=== PATIENT | male | born 1960 | race Caucasian/White ===

== ENCOUNTER → 2021-07-02 11:10 | Outpatient (CLI) | payer OTHER, SELFPAY ==
--- NOTE | ~2021-07-02 | XR_ITS ---
EXAMINATION: XR hip RT min 2V DATE: 07/02/2021 12:09 INDICATION: Right hip osteoarthritis and pain. TECHNIQUE: 2 views of right hip with weightbearing were obtained. COMPARISON: None. FINDINGS: Bone alignment is normal. No fracture. Right hip joint space is normal. IMPRESSION: 1. Normal right hip. Reviewed, dictated and finalized at location A. IMPRESSION: 1. Normal right hip.
== END ==
PROVIDERS: Visit Provider Chiropractor
DX: M16.11 Unilateral primary osteoarthritis, right hip (principal)
CPT/HCPCS: 73502

== ENCOUNTER 2022-07-05 11:04 | Outpatient (CLI) | payer BC, SELFPAY | END 2022-07-05 11:05 | disposition home or self-care (01) | LOC: ANHBWCAUD 11:05 | PROVIDERS: PCP Otolaryngology; Visit Provider Otolaryngology | DX: H90.3 Sensorineural hearing loss, bilateral (principal) | CPT/HCPCS: 92557; 92567 ==

== ENCOUNTER 2023-03-17 23:03 | Emergency (ER) | payer BC, SELFPAY ==
--- NOTE | ~2023-03-17 | XR_ITS ---
XR ankle RT min 3V DATE: 03/17/2023 23:25 INDICATION: Fall. Deformity. TECHNIQUE: Portable three-view examination COMPARISON: None FINDINGS: There is a posteriorly displaced linear oblique fracture through the distal fibular diameta physis and posterior dislocation of the tibiotalar joint. There are some calcifications of the distal Achilles tendon. Mild plantar calcaneal enthesopathy. IMPRESSION: Linear oblique posteriorly displaced distal fibular diametaphyseal fracture and posterior tibiotalar joint dislocation Reviewed, dictated and finalized at location A.
--- NOTE | ~2023-03-17 | XR_ITS ---
XR ankle RT min 3V DATE: 03/18/2023 01:12 INDICATION: Fracture dislocation TECHNIQUE: Portable 4 view examination COMPARISON: 03/17/2023 right ankle FINDINGS: There is reduction of the posterior dislocation but mild lateral subluxation at the tibiota lar joint. Linear oblique fracture of the distal fibular diametaphysis is again noted with diminished displaceme nt,, currently approximately 3.8 mm lateral to 6.5 mm posterior displacement. IMPRESSION: Mild lateral subluxation at the tibiotalar joint Mild posterolateral displacement at the linear oblique distal fibular diametaphyseal fracture Reviewed, dictated and finalized at location A. IMPRESSION: Mild lateral subluxation at the tibiotalar joint Mild posterolateral displacement at the linear oblique distal fibular diametaph yseal fracture
--- NOTE | ~2023-03-17 | XR_ITS ---
XR hand LT min 3V DATE: 03/17/2023 23:25 INDICATION: Fall. Left hand injury TECHNIQUE: 3 portable views COMPARISON: None FINDINGS: There is prominent soft tissue swelling of the hand, particularly along the dorsum of the h and. There is polyarticular osteoarthritis, involving the first carpometacarpal joint and some interphalan geal joints. No fracture, dislocation, periosteal reaction or bone destruction, erosive change or chondrocalcinosi s is noted. IMPRESSION: Soft tissue swelling Osteoarthritis Reviewed, dictated and finalized at location A.
[2023-03-17 23:04] VITALS: BP 150/77; PULSE 87; RESP 18; TEMP 35.7; O2SAT 99
[2023-03-17 23:27] VITALS: BP 142/84; O2SAT 98
[2023-03-17 23:31] VITALS: BP 149/89; O2SAT 97
[2023-03-17] MEDS: MORPHINE SULFATE (*CRX) 4 MG/ML INJ IV PUSH (23:49)
[2023-03-17] MEDS: ONDANSETRON INJ 4 MG/2 ML VIAL IV PUSH (23:49)
[2023-03-18] VITALS (19 sets, daily range): BP systolic 135–165; BP diastolic 80–98; PULSE 87–96; RESP 12–25; TEMP 36.8–37.1; O2SAT 93–100
[2023-03-18] MEDS: SODIUM CHLORIDE 0.9% IV 1,000 ML 150 ML IV CONT (00:42)
--- NOTE | 2023-03-18 01:44 | ED.LOWEXIN ---
HPI - Extremity Injury (Lower) General Chief Complaint: Extremity Injury, Lower Stated Complaint: fall, right ankle pain Time Seen by Provider: 03/17/23 23:18 Source: patient and family Mode of arrival: wheelchair Limitations: no limitations History of Present Illness HPI Narrative: 62-year-old here with plaints of fall. Patient states that he missed a step fell down 5 of 6 stairs at home. Complaining of right ankle pain and left hand swelling. He denies any head and neck injuries. reports that he fell earlier this morning at the pool. Denies any LOC ,he is not on any anticoagulant. MD complaint: ankle injury Injury: Right: ankle Type of Injury: unknown Place: home Severity: moderate Severity scale (1-10): 10 Relieving factors: nothing Exacerbating factors: weight bearing and movement Context: fall Associated symptoms: snap/pop sensation, swelling and unable to bear weight Other symptoms: none Related Data Allergies Allergy/AdvReac Type Severity Reaction Status Date / Time No Known Allergies Allergy Unknown Verified 03/17/23 23:22 Review of Systems Review of Systems: All systems reviewed & are unremarkable except as noted in HPI and below Constitutional: Constitutional: Reports no additional constitutional complaints Eyes: Eyes: Reports no additional eye complaints ENT: Reports system reviewed and no additional complaints, except as documented Cardiovascular: Cardiovascular: Reports no additional cardiovascular complaints Respiratory: Respiratory: Reports no additional respiratory complaints Gastrointestinal: Gastrointestinal: Reports no additional gastrointestinal complaints Musculoskeletal: Musculoskeletal: Reports as per HPI Neurologic: Reports system reviewed and no additional complaints, except as documented Psychiatric: Psychiatric: Reports no additional psychiatric complaints [facility] Social History Social History Smoking status: Never smoker Alcohol intake: current Exam Narrative: GENERAL: Well-appearing, well-nourished, and in no acute distress. HEAD: Normocephalic, atraumatic. Small bruise noted on the left bahai EYES: PERRLA and EOMI. ENT: Nares clear, no rhinorrhea or epistaxis. Mucous membranes moist. NECK: Supple. CHEST: Clear to auscultation. No respiratory distress. HEART: Regular rate and rhythm. No murmur heard. Normal peripheral pulses. ABDOMEN: Soft, nontender, nondistended, normal active bowel sounds. EXTREMITIES: Normal range of motion. Obvious deformity of the right ankle. Adequate distal pulses. Neurologically intact Soft tissue swelling noted on the left hand with no deformity SKIN: Warm, dry, no rash. NEURO: No focal deficits. Alert and oriented x3. PSYCH: Normal mood and affect. Course Course Emergency Course: Notified patient about his x-ray findings of his right ankle agreeable for moderate sedation and closed reduction of the right ankle. Notified Dr. Cruz, will follow up in the office Vital Signs Vital signs: Vital Signs Temperature 35.7 C L 03/17/23 23:04 Pulse Rate 87 03/17/23 23:04 Respiratory Rate 18 03/17/23 23:04 Blood Pressure 150/77 H 03/17/23 23:04 Pulse Oximetry 99 03/17/23 23:04 Oxygen Delivery Room Air 03/17/23 23:04 Temperature 37.0 C 03/18/23 01:22 Pulse Rate 89 03/18/23 01:22 Respiratory Rate 21 H 03/18/23 01:22 Blood Pressure 143/88 H 03/18/23 01:22 Pulse Oximetry 96 03/18/23 01:22 Oxygen Delivery Room Air 03/18/23 01:22 Oxygen Flow Rate 3 03/18/23 00:48 Procedures Orthopedic Fracture Reduction Fracture #1: Fracture Reduction date: 03/18/23 Fracture Reduction time: 00:50 Time Out Performed: Yes Side: right Fracture Reduction Location: other (Right ankle) Analgesia: procedural sedation Pre-Procedure Neuro Vascular Exam: normal Technique: direct manipulation Post Red
== END 2023-03-18 03:02 | disposition home or self-care (01) ==
PROVIDERS: Emergency Provider Family Medicine; PCP Family Medicine
DX: S82.891A Other fracture of right lower leg, initial encounter for closed fracture (principal); S93.04XA Dislocation of right ankle joint, initial encounter; W10.9XXA Fall (on) (from) unspecified stairs and steps, initial encounter; Y92.009 Unspecified place in unspecified non-institutional (private) residence as the place of occurrence of the external cause
CPT/HCPCS: 27840; 73130; 73610; 96374; 96375; 99285; J2270; J2405; J2704; J7030

== ENCOUNTER 2023-03-23 03:08 | Day surgery (SDC) | payer BC, SELFPAY ==
[2023-03-22 09:28] VITALS: BMI 36.2
--- NOTE | 2023-03-22 09:41 | PC.NURSE ---
Report to the Outpatient Waiting Room, entrance under the green pavilion located off [facility], at time __1000 on date ___03/23/23____. Planned Procedure Time: ___1200 . Time changes happen often and if your time is changed the preop area will call you the afternoon before. - You and your visitor will be asked to self-screen and do not enter if you have any COVID symptoms. - A mask is optional within the hospital at this time. Patients may have clear liquids (water, carbonated beverages, clear teas, apple juice) until 3 hours prior to surgery (0900 AM) with a maximum of 20 ounces. - No food from midnight until time of surgery - Infants may have breast milk until 4 hours before surgery, infant formula 6 hours prior to surgery. - Children will be allowed to drink immediately following surgery. If applicable, please bring a bottle or sippy cup to assist with drinking. Juice, water, soda, and popsicles are readily available. For infants on formula, please bring formula the day of surgery. Pacifiers are allowed. Take the following medications with a SIP of water the morning of surgery: PAIN PILL DO NOT STOP ANY OF YOUR OTHER PRESCRIPTION MEDICATIONS PRIOR TO SURGERY ?EXCEPT THE FOLLOWING Medications to discontinue per physician _IBUPROFEN PER DR. HUITRON'S INSTRUCTIONS, MULTIVITAMIN & SUPPLEMENTS OF TODAY 03/22/23___ Date to take last dose Please no make-up, nail irish, hairspray, perfume, deodorant, or body powder the day of surgery. No jewelry (including any body piercings) or valuables the day of surgery, leave them at home. Please take a shower or bath the night before, or the morning of, surgery with an antibacterial soap. Wear comfortable, loose fitting clothing. Children are encouraged to wear pajamas. - Jewelry must be removed prior to entering the operating room. Rings and piercings that are not removed may be cut off. - The hospital will not accept responsibility for valuables. - Please leave all valuables, including medications, at home the day of surgery. If you are going home after surgery, a licensed route driver must drive you home. - NO public transportation without another adult if you receive anesthesia. - We recommend that an adult stay with you for 24 hours following discharge. - We also recommend that you do not drive, make important decision, drink alcoholic beverages, or take any drugs that were not prescribed by your health care provider for at least 24 hours after your discharge time. For Pediatric surgeries, we recommend two adults accompany the child home. Follow any additional instructions given to you from your surgeon. If you or anyone in your household have experienced Covid symptoms in the past week, please notify your surgeon or the nurse liaison at the phone number below for possible testing. Telephone instructions given to ____PT and asked if any additional questions and then verbalized understanding. Patient advised to call surgeon office or pre surgery nurse liaison [phone] if any additional questions.
[2023-03-23] VITALS (12 sets, daily range): BP systolic 148–183; BP diastolic 86–98; PULSE 76–92; RESP 12–18; TEMP 36.7–37; O2SAT 93–98
--- NOTE | ~2023-03-23 | XR_ITS ---
EXAMINATION: XR surgery orthopedic DATE: 03/23/2023 12:30 CDT INDICATION: ORIF RIGHTT ANKLE . TECHNIQUE: 4 fluoroscopic images of the right ankle were obtained during ORIF right ankle performed b y the surgeon. I was not present in the operating room. Fluoroscopy exposure time was 64.6 seconds. A ir Kerma 3.69 mGy. DAP 0.63967 mGym2. COMPARISON: X-ray right ankle FINDINGS: Hardware fixation of the distal fibula and syndesmosis. The ankle joint is aligned. IMPRESSION: Fluoroscopic documentation of ORIF right ankle. Please refer to the operative note for complete proce dural details . Reviewed, dictated and finalized at location K. IMPRESSION: Fluoroscopic documentation of ORIF right ankle. Please refer to the operative n ote for complete procedural details .
--- NOTE | 2023-03-23 10:40 | WPDHPUPDATE1 ---
History and Physical Update Update Date/Time: 03/23/23 10:40 History and Physical has been reviewed, including an updated exam of the patient. There are NO changes in the patient's condition. Risks, benefits, and alternatives have been discussed and questions answered. Patient agrees to proceed with procedure.
[2023-03-23] MEDS: LACTATED RINGERS 1,000 ML 30 ML IV CONT ×2 (10:50→13:41)
[2023-03-23] MEDS: KETOROLAC 15 MG/ML VIAL (*BKC) IV PUSH (10:56)
[2023-03-23] MEDS: ACETAMINOPHEN 500 MG TABLET 1000 MG PO (10:56)
--- NOTE | 2023-03-23 11:51 | WPDANESEPPF ---
Anes - Initial Pre Proc Eval Procedure: Operation Date: 03/23/23 12:00 Proposed Procedures p Open Reduction Internal Fixation Right Ankle Fracture - Eduardo Cruz MD Date/Time: 03/23/23 11:51 Surgeon: Eduardo Cruz MD Pre Op Diagnosis: Right Ankle Fracture Patient Data Age: 62 Gender: M Height: 1.75 m Weight: 95.6 kg Last Vital Signs Temp 36.7 C 03/23/23 10:33 Pulse 76 03/23/23 10:33 Resp 18 03/23/23 10:33 BP 155/86 H 03/23/23 10:33 Pulse Ox 98 03/23/23 10:33 O2 Del Method Room Air 03/23/23 10:33 Allergies Allergy/AdvReac Type Severity Reaction Status Date / Time No Known Allergies Allergy Unknown Verified 03/23/23 10:31 Home Medications Medication Instructions Recorded Confirmed Type oxycodone-acetaminophen 5 mg-325 1 tablet PO Q6H PRN pain #20 tabs 03/18/23 03/23/23 Rx mg tablet (Percocet) acetaminophen 500 mg tablet 500 mg PO QID PRN Pain 03/22/23 03/23/23 History ibuprofen 200 mg tablet 200 mg PO Q6H PRN Pain 03/22/23 03/23/23 History multivitamin 1 tablet DAILY 03/22/23 03/23/23 History potassium 99 mg tablet 99 mg HS 03/22/23 03/23/23 History Patient hx anesthesia problems: none Family hx anesthesia problems: none Results Review: All pre-operative results and documents have been reviewed as part of the pre-operative evaluation. COUNTS INCLUDE 234 BEDS AT THE [facility] Surgical History Surgical History History of hernia surgery Family History Family History Unknown Heart disease Hypertension Depression Lung disease Social History Social History Smoking status: Never smoker Second hand tobacco smoke exposure: No Alcohol intake: current Drinks per week: 10 Substance use: never Substance use type: does not use Living arrangements: with family Spiritual care concerns: No Anes - Eval Final PreProcedure Day of Procedure 07/20/23 11:51 Patient weight: obese Heart: regular rate and rhythm Lungs: clear to auscultation Airway: Mallampati scale class II Neurological: alert and oriented Last oral intake: >/= 8 hours ASA classification: II Emergent: no Anesthetic plan: proceed Anesthesia type and monitoring: general LMA and standard monitoring Results Review: All pre-operative results and documents have been reviewed as part of the pre-operative evaluation. Informed Consent: The patient's anesthetic plan and its attendant risks and benefits were discussed with the patient/family/POA. Questions were solicited and answers provided to the satisfaction of the patient/family/POA.
[2023-03-23] MEDS: ceFAZolin 2 GM/D5W 50 ML 2 GM/50 ML BAG IVPB (12:07)
[2023-03-23] MEDS: BUPIVACAINE/EPINEPHRINE 0.25% 10 ML VIAL 30 ML INFILTRATE (12:32)
--- NOTE | 2023-03-23 13:47 | W.PM.PROC2 ---
Procedure Note - Detailed Date of Procedure 03/23/23 Pre-op Diagnosis Right Ankle Fracture Post-op Diagnosis Same ( right ankle fracture dislocation with involvement of the lateral and medial malleolus, right ankle syndesmosis disruption) Procedure Performed Open reduction internal fixation right ankle fracture distal fibula, And medial malleolus. open reduction internal fixation of right ankle Distal syndesmosis Surgeon Eduardo Cruz MD Associate Dean 1St assistant facility manager Anesthesia General Indications 62-year-old fell and sustained a right ankle fracture dislocation. Presents now for operative treatment. Findings Distal fibular fracture with displacement. The deltoid ligament rupture from the medial malleolus with avulsion fragment. Description of Procedure After informed consent, the operative extremity was marked in the preoperative holding area. Patient received intravenous antibiotics. Patient was then taken to the operating room and underwent general anesthesia by the anesthesia team. Positioned supine on the operating room table with a soft bump under the ipsilateral hip. A time-out was performed confirming the patient, site of the surgery, operative plan. Lower extremity then prepped and draped in the usual sterile surgical fashion using ChloraPrep skin solution. Foot and ankle exsanguinated and a thigh tourniquet inflated to 250 mmHg. Longitudinal incision made over the lateral ankle distal fibula with a 15 blade knife. Hemostasis controlled with electrocautery. Full-thickness soft tissue flaps developed and the fascia was incised in line with the skin incision. Fracture identified and cleared with a dental pick, irrigation and rongeur. Fracture reduced and held with bone-holding clamp. Image intensification confirmed reduction of the fracture and the ankle mortise. Fixation achieved with an intramedullary nail. Guide pin placed from distal to the fibula through the intramedullary canal across the fracture proximally and verified with image intensification. This was then reamed and the nail was inserted. Correct depth verified and distal locking performed with 2.7 mm screw x2. The proximal locking device was deployed.. Good alignment and stability of the fracture noted. Image intensification used to confirm reduction of the fracture and placement of the hardware. With stress on the ankle under fluoroscopy there was noted to be instability of the syndesmosis. Syndesmosis fixed with a Tight rope fixation system. control placed from lateral to medial under fluoroscopy guidance. The medial button was then passed and secured to the medial tibia lateral button placed and tension was applied to the syndesmosis with the ankle in neutral position. Image intensification confirmed placement at stability. Medial side then addressed. Longitudinal incision made with a 15 blade knife over the medial malleolus fracture. Hemostasis controlled with electrocautery. Fascia incised in line with skin incision. Periosteum cleared from the medial malleolus fracture. Medial side of the joint inspected and noted to have mild amount of trauma to the chondral surface. Thorough irrigation of the ankle joint and suctioned out. Fracture reduced and provisionally pinned. Fixation achieved with 2.0 mm fiber tack attached 2 FiberWire suture. Fiber or suture placed through the deltoid ligament distal to the avulsion and reduced into position.. Image intensification confirmed reduction of the fracture and placement of the hardware. Stress of the ankle performed with good stability of the ankle mortise in all directions. Wounds thoroughly irrigated with solution. Fascia repaired with 00 Vicryl interrupted suture. Subcutaneous tissue repaired with 000 Monocryl interrupted suture and Skin approximated with Dermabond. Sterile dressings applied followed by bulky dressing and splint. Patient awoken from anesthesia, extubated and taken to the recovery room in stable condi
[2023-03-23] MEDS: fentaNYL CITRATE INJ (*CRX) 100 MCG/2 ML VIAL 25 MCG IV PUSH ×8 (14:30→14:56)
[2023-03-23] MEDS: HYDROmorphone HCL INJ (*CRX) 1 MG/ML SYR IV PUSH (15:03)
[2023-03-23] MEDS: oxyCODONE HCL (*CRX) 5 MG TAB IR PO (15:44)
== END 2023-03-23 16:44 | disposition home or self-care (01) ==
PROVIDERS: PCP Family Medicine; Visit Provider Orthopaedic Surgery
PROC: (CPT 27814; principal; 2023-03-23 12:00)
DX: S82.841A Displaced bimalleolar fracture of right lower leg, initial encounter for closed fracture (principal); S93.431A Sprain of tibiofibular ligament of right ankle, initial encounter; W10.9XXA Fall (on) (from) unspecified stairs and steps, initial encounter; E66.9 Obesity, unspecified; Z68.31 Body mass index [BMI] 31.0-31.9, adult
CPT/HCPCS: 27814; 27829; 99199; A9270; C1713; J0690; J1100; J1170; J1885; J2250; J2405; J2704; J3010; J7120

== ENCOUNTER 2023-08-07 08:44 | Outpatient (CLI) | payer BC, SELFPAY ==
--- NOTE | 2023-08-08 12:45 | WPDHOMESLEEP ---
Sleep Study - Home Unattended Date of Study: 08/07/23 Ordering Provider: Pillo Mike MD Interpreting Provider: Sarah Mendiola DO Home Sleep Study Type: Watch PAT Height: 1.75 m Weight: 113.398 kg Body Mass Index: 36.9 Neck Circumference (inches): 17.5 [place]: 8 Reason for Sleep Study Snoring, unrefreshing sleep Sleep History The patient is a 63-year-old male with diverticulosis, tinnitus, right shoulder pain and obesity that had a sleep study ordered by his primary care physician for evaluation sleep. 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 The patient did not fill out the sleep intake forms so I am unable to comment on his sleep history. [facility] Past Medical History Medical History BMI 37.0-37.9, adult BMI 38.0-38.9,adult Diverticulosis Encounter for postoperative care H/O fracture of ankle H/O fracture of leg History of GI bleed Medication management Need for vaccination Right shoulder pain Snoring Surgical History Surgical History History of hernia surgery Family History Family History Father Hypertension Dementia Heart disease Mother Hypertension Hypoglycemia Depression Heart disease Fibromyalgia Sibling PTSD (post-traumatic stress disorder) Social History Social History Smoking status: Never smoker Second hand tobacco smoke exposure: Yes Alcohol intake: current Drinks per week: 10 Substance use: never Substance use type: does not use Lack of Transportation: No Lack of Food: Never True Current Housing: I Have Housing Concerned About Future Housing: No Difficulty Paying Gas/Electric Bills: No Difficulty Paying for Meds: No Currently Unemployed: No Education: Bachelor's Degree Living arrangements: with family Occupation/Education: occupation 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 Gender identity (if verbalized by the patient): Male Spiritual care concerns: No Medications Home Medications Medication Instructions Recorded Confirmed Type acetaminophen 500 mg tablet 500 mg PO QID PRN Pain 03/22/23 07/10/23 History ibuprofen 200 mg tablet 200 mg PO Q6H PRN Pain 03/22/23 07/10/23 History multivitamin 1 tablet DAILY 03/22/23 07/10/23 History potassium 99 mg tablet 99 mg HS 03/22/23 07/10/23 History pneumoc 20-darlene conj-dip cr(PF) 0.5 0.5 ml IM ONCE #0.5 mL 05/25/23 07/10/23 Rx mL IM syringe (Prevnar 20 (PF)) eszopiclone 3 mg tablet (Lunesta) 3 mg PO QHS #30 tabs 07/10/23 07/10/23 Rx Sleep Procedure The sleep study was completed using Image InsightT a technically adequate device with seven channels: peripheral arterial tone, actigraphy, body position, snore, respiratory movement, pulse oximetry, sleep staging, and heart rate. Prior to using the device, the patient received verbal and written instructions for its application and was provided with the help desk phone number for additional telephonic instruction with 24-hour availability of qualified personnel to answer questions. The study was scored using CMS guidelines. Sleep Architecture The patient had a total recording time of 7 hours 2 minutes and a total sleep time of 6 hours 26 minutes. The sleep efficiency was 91.37%. The sleep latency was 27 minutes and the REM latency was 90 minutes. The patient had 5 awakenings. The patient spent 70.23% of total sleep time in light sleep, 10.62% of total sleep time in deep sleep and 19.15% of total sleep time in REM sleep. The patient spent 3.8 minutes, 1% of total sleep time in the supine position. Respiratory Analysis The patient had an overall AHI of 30.5 and a central apnea index of 0.2. The REM AHI was 43.2. Sanjay Aguiar respirations were not seen. Oximetry Data The patient had an
[2023-08-08 12:53] VITALS: BMI 36.9
== END 2023-08-08 08:00 | disposition home or self-care (01) ==
LOC: ANHCSM 08:45
PROVIDERS: PCP Family Medicine; Visit Provider Family Medicine
DX: G47.19 Other hypersomnia (principal); G47.33 Obstructive sleep apnea (adult) (pediatric)
CPT/HCPCS: 95800

== ENCOUNTER 2024-08-06 09:22 | Outpatient (CLI) | payer BC, SELFPAY ==
--- NOTE | 2024-08-06 11:30 | NEURO_ITS ---
Impression: # Complains of numbness of hands. Non-diabetic. # Mild bilateral Carpal Tunnel Syndrome. # No ulnar neuropathy. # Normal Needle/EMG exam. Nerve Conduction Studies Anti Sensory Summary Table Stim Site NR Peak (ms) P-T Amp (?V) Site1 Site2 Delta-P (ms) Dist (cm) Dex (m/s) Left Median Anti Sensory (2-3nd Digit) Wrist 3.4 46.8 Wrist 2-3nd Digit 3.4 14.0 41 Wrist 4.1 16.9 Wrist 2-3nd Digit 3.4 14.0 41 Right Median Anti Sensory (2-3nd Digit) Wrist 4.2 36.4 Wrist 2-3nd Digit 4.2 14.0 33 Wrist 4.6 44.3 Wrist 2-3nd Digit 4.2 14.0 33 Left Radial Anti Sensory (Base 1st Digit) Wrist 2.3 22.4 Wrist Base 1st Digit 2.3 0.0 Right Radial Anti Sensory (Base 1st Digit) Wrist 2.0 25.4 Wrist Base 1st Digit 2.0 0.0 Left Ulnar Anti Sensory (5th Digit) Wrist 2.7 38.2 Wrist 5th Digit 2.7 14.0 52 Right Ulnar Anti Sensory (5th Digit) Wrist 2.7 62.1 Wrist 5th Digit 2.7 14.0 52 Motor Summary Table Stim Site NR Onset (ms) O-P Amp (mV) Site1 Site2 Delta-0 (ms) Dist (cm) Dex (m/s) Left Median Motor (Abd Poll Brev) Wrist 4.1 1.9 Elbow Wrist 5.6 32.0 57 Elbow 9.7 4.1 Right Median Motor (Abd Poll Brev) Wrist 4.1 4.7 Elbow Wrist 5.5 32.0 58 Elbow 9.6 7.3 Left Ulnar Motor (Abd Dig Minimi) Wrist 2.4 8.0 A Elbow Wrist 5.2 30.0 58 A Elbow 7.6 6.9 Right Ulnar Motor (Abd Dig Minimi) Wrist 2.6 9.3 A Elbow Wrist 5.1 30.0 59 A Elbow 7.7 7.6 F Wave Studies NR F-Lat (ms) L-R F-Lat (ms) Left Median (Mrkrs) (Abd Poll Brev) 30.65 1.70 Right Median (Mrkrs) (Abd Poll Brev) 32.34 1.70 Left Ulnar (Mrkrs) (Abd Dig Min) 29.47 0.63 Right Ulnar (Mrkrs) (Abd Dig Min) 30.10 0.63 EMG Side Muscle Nerve Root Ins Act Fibs Amp Dur Recrt Comment Right 1stDorInt Ulnar C8-T1 Nml Nml Nml Nml Nml Right Ext Indicis Radial (Post Int) C7-8 Nml Nml Nml Nml Nml Right Ext Digitorum Radial (Post Int) C7-8 Nml Nml Nml Nml Nml Right BrachioRad Radial C5-6 Nml Nml Nml Nml Nml Right PronatorTeres Median C6-7 Nml Nml Nml Nml Nml Right Abd Poll Brev Median C8-T1 Nml Nml Nml Nml Nml Right ABD Dig Min Ulnar C8-T1 Nml Nml Nml Nml Nml Left 1stDorInt Ulnar C8-T1 Nml Nml Nml Nml Nml Left Ext Indicis Radial (Post Int) C7-8 Nml Nml Nml Nml Nml Left Ext Digitorum Radial (Post Int) C7-8 Nml Nml Nml Nml Nml Left BrachioRad Radial C5-6 Nml Nml Nml Nml Nml Left PronatorTeres Median C6-7 Nml Nml Nml Nml Nml Left Abd Poll Brev Median C8-T1 Nml Nml Nml Nml Nml Left ABD Dig Min Ulnar C8-T1 Nml Nml Nml Nml Nml MTDD
== END 2024-08-06 09:23 | disposition home or self-care (01) ==
PROVIDERS: PCP Family Medicine; Visit Provider Family Medicine
DX: R20.0 Anesthesia of skin (principal); G56.03 Carpal tunnel syndrome, bilateral upper limbs
CPT/HCPCS: 95886; 95911

== ENCOUNTER 2025-01-14 07:49 | Outpatient (CLI) | payer BC, SELFPAY | END 2025-01-14 07:50 | disposition home or self-care (01) | LOC: ANHBWCAUD 07:49 | PROVIDERS: PCP Family Medicine; Visit Provider Otolaryngology | DX: H90.3 Sensorineural hearing loss, bilateral (principal); H93.13 Tinnitus, bilateral | CPT/HCPCS: 92557; 92567 ==

== ENCOUNTER 2025-07-24 01:21 | Day surgery (SDC) | payer BC, SELFPAY ==
[2025-07-14 12:28] VITALS: BMI 38.2
[2025-07-24 12:48] VITALS: BP 138/90; PULSE 82; RESP 16; TEMP 36.1; O2SAT 97; BMI 37.3
[2025-07-24] MEDS: LACTATED RINGERS 1,000 ML 150 ML IV CONT (12:56)
[2025-07-24] MEDS: SIMETHICONE ORAL SUSPENSION 20 MG/0.3 ML 30 ML BOTTLE 1.8 ML PO (12:59)
--- NOTE | 2025-07-24 13:26 | WPDANESEPPF ---
Anes - Initial Pre Proc Eval Procedure: Operation Date: 07/24/25 14:00 Proposed Procedures p EGD & Screening Colonoscopy - Adama Valencia MD Date/Time: 07/24/25 13:26 Surgeon: Adama Valencia MD Pre Op Diagnosis: GERD, Screening Patient Data Age: 65 Gender: M Height: 1.75 m Weight: 114.8 kg Last Vital Signs Temp 36.1 C L 07/24/25 12:48 Pulse 82 07/24/25 12:48 Resp 16 07/24/25 12:48 BP 138/90 07/24/25 12:48 Pulse Ox 97 07/24/25 12:48 O2 Del Method Room Air 07/24/25 12:48 Allergies Allergy/AdvReac Type Severity Reaction Status Date / Time No Known Allergies Allergy Unknown Verified 07/24/25 12:47 Home Medications ?Medication ?Instructions ?Recorded ?Confirmed ?Type acetaminophen 500 mg tablet 500 mg PO QID PRN Pain 03/22/23 07/14/25 History potassium 99 mg tablet 200 mg PO HS 03/22/23 07/24/25 History melatonin 10 mg tablet 10 mg PO QHS 05/23/24 07/24/25 History magnesium 250 mg tablet 500 mg PO DAILY 06/03/25 07/24/25 History esomeprazole magnesium 40 mg 40 mg PO DAILY PRN GERD 07/14/25 07/14/25 History capsule,delayed release Patient hx anesthesia problems: none Family hx anesthesia problems: none Results Review: All pre-operative results and documents have been reviewed as part of the pre-operative evaluation. [facility] Past Medical History Medical History Anxiety Snoring H/O fracture of ankle Right shoulder pain History of GI bleed Diverticulosis Medication management Need for vaccination H/O fracture of leg Encounter for postoperative care Surgical History Surgical History Hx of colonoscopy History of hernia surgery Family History Family History Father Hypertension Dementia Heart disease Mother Hypertension Hypoglycemia Depression Heart disease Fibromyalgia Rheumatoid arthritis CHF (congestive heart failure) Sibling PTSD (post-traumatic stress disorder) Hypertension Social History Social History Smoking status: Never smoker Second hand tobacco smoke exposure: Yes Alcohol intake: current Drinks per week: 10 Substance use: never Substance use type: does not use Do You Feel Safe in your Home?: Yes Lack of Transportation: No Lack of Food: Never True Current Housing: I Have Housing Concerned About Future Housing: No Difficulty Paying Gas/Electric Bills: No Difficulty Paying for Meds: No Currently Unemployed: No Education: Bachelor's Degree Living arrangements: with family Occupation/Education: occupation 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 Informed Consent: The patient's anesthetic plan and its attendant risks and benefits were discussed with the patient/family/POA. Questions were solicited and answers provided to the satisfaction of the patient/family/POA.
--- NOTE | 2025-07-24 13:42 | PM.IMHP ---
H&P: HPI History of Present Illness Date/Time: 07/24/25 13:42 Chief Complaint: GERD-screening colonoscopy Narrative: Patient suffering from heartburn intermittently for the past few months, much improved after he started Nexium. Referred for EGD. He denies dysphagia, vomiting, abdominal pain. In addition he is also referred for colonoscopy for screening purposes. He had a colonoscopy for bleeding diverticulosis in 2019.. Review of Systems Review of Systems: All systems reviewed & are unremarkable except as noted in HPI and below PMFSH Past Medical History Medical History Anxiety Snoring H/O fracture of ankle Right shoulder pain History of GI bleed Diverticulosis Medication management Need for vaccination H/O fracture of leg Encounter for postoperative care Surgical History Surgical History Hx of colonoscopy History of hernia surgery Family History Family History Father Hypertension Dementia Heart disease Mother Hypertension Hypoglycemia Depression Heart disease Fibromyalgia Rheumatoid arthritis CHF (congestive heart failure) Sibling PTSD (post-traumatic stress disorder) Hypertension Social History Social History Smoking status: Never smoker Second hand tobacco smoke exposure: Yes Alcohol intake: current Drinks per week: 10 Substance use: never Substance use type: does not use Do You Feel Safe in your Home?: Yes Lack of Transportation: No Lack of Food: Never True Current Housing: I Have Housing Concerned About Future Housing: No Difficulty Paying Gas/Electric Bills: No Difficulty Paying for Meds: No Currently Unemployed: No Education: Bachelor's Degree Living arrangements: with family Occupation/Education: occupation 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 Gender identity (if verbalized by the patient): Male Spiritual care concerns: No Meds Home Medications and Allergies Home Medications ?Medication ?Instructions ?Recorded ?Confirmed ?Type acetaminophen 500 mg tablet 500 mg PO QID PRN Pain 03/22/23 07/14/25 History potassium 99 mg tablet 200 mg PO HS 03/22/23 07/24/25 History melatonin 10 mg tablet 10 mg PO QHS 05/23/24 07/24/25 History magnesium 250 mg tablet 500 mg PO DAILY 06/03/25 07/24/25 History esomeprazole magnesium 40 mg 40 mg PO DAILY PRN GERD 07/14/25 07/14/25 History capsule,delayed release Allergies Allergy/AdvReac Type Severity Reaction Status Date / Time No Known Allergies Allergy Unknown Verified 07/24/25 12:47 Vital Signs Vital Signs - 24 hr 07/24/25 12:48 Temperature 96.9 F L Pulse Rate 82 Respiratory Rate 16 Blood Pressure 138/90 Pulse Oximetry 97 Oxygen Delivery Room Air Exam Const: General: cooperative and healthy appearing Resp: Effort & Inspection: normal respiratory effort and able to speak in complete sentences Auscultation: clear to auscultation bilaterally Cardio: Rate: regular rate Rhythm: regular rhythm GI: Inspection: normal to inspection GI Palp: No No hepatosplenomegaly present Auscultation: normal bowel sounds Rectal Exam: deferred Skin: General skin exam: normal color Psych: Appearance: grossly normal Mental Status: mental status grossly normal Assessment and Plan Assessment and plan (1) GERD without esophagitis: Code(s): K21.9 - Gastro-esophageal reflux disease without esophagitis Status: Acute Assessment and Plan: The patient is deemed a good candidate for the procedures. Consent signed. Will proceed. (2) Diverticulosis: Code(s): K57.90 - Diverticulosis of intestine, part unspecified, without perforation or abscess without bleeding Status: Acute
--- NOTE | 2025-07-24 13:58 | SUR.OPER ---
EGD: start 1353, end 1357 Colonoscopy: start 1403, end 1416
--- NOTE | 2025-07-24 14:01 | S_PTH ---
PATIENT: Juan Bauer LOC: [facility] #:[id number] AGE/SX: 65/M ROOM: RE07/24/[address]: Adama Valencia MD : 1960 BED: DIS: 07/24/2025 SPEC #: [id number] RECD: 07/24/25 14:25 STATUS: LALITA REQ #: [id number] ALFIE: 07/24/25 14:[address]: Adama Valencia DEPT: [facility] Surgical RECD BY: Magdalena Lugo ENTERED: 07/24/25 14:25 SP TYPE: Surgical OTHR DR: Pillo Mike MD Tissues: A - Gastric Biopsy B - Gastric Biopsy Procedures: Hematoxylin and Eosin Stain Gross and Microscopic Level 4
[2025-07-24 14:18] VITALS: BP 120/80; PULSE 73; RESP 15; O2SAT 96
[2025-07-24 14:28] VITALS: BP 133/74; PULSE 75; RESP 12; O2SAT 100
[2025-07-24 14:38] VITALS: BP 145/90; PULSE 73; RESP 20; O2SAT 100
== END 2025-07-24 14:50 | disposition home or self-care (01) ==
PROVIDERS: PCP Family Medicine; Referring Provider Family Medicine; Visit Provider Internal Medicine Gastroenterology
PROC: 0DJ08ZZ Inspection of Upper Intestinal Tract, Via Natural or Artificial Opening Endoscopic (ICD-10-PCS; CPT 45378; principal; 2025-07-24 14:00)
DX: Z12.11 Encounter for screening for malignant neoplasm of colon (principal); K64.8 Other hemorrhoids; K57.30 Diverticulosis of large intestine without perforation or abscess without bleeding; K21.9 Gastro-esophageal reflux disease without esophagitis; F41.9 Anxiety disorder, unspecified; R06.83 Snoring; E66.9 Obesity, unspecified; Z68.37 Body mass index [BMI] 37.0-37.9, adult; Z98.890 Other specified postprocedural states; Z87.19 Personal history of other diseases of the digestive system; Z82.49 Family history of ischemic heart disease and other diseases of the circulatory system
CPT/HCPCS: 43239; 45378; 88305; J2003; J2704; J7120